=== PATIENT | female | born 1950 | race Caucasian/White ===

== ENCOUNTER 2023-06-26 13:44 | Outpatient (CLI) | payer MEDICARE, BC | END 2023-06-26 13:45 | disposition home or self-care (01) | LOC: CSHWCC 13:44 | PROVIDERS: ATTEND Nurse Practitioner Family | DX: S81.801D Unspecified open wound, right lower leg, subsequent encounter (principal); R60.0 Localized edema | CPT/HCPCS: 29581; 97139; 97605; G0463; 99203 ==

== ENCOUNTER 2023-06-28 09:25 | Outpatient (CLI) | payer MEDICARE, BC | END 2023-06-28 09:26 | disposition home or self-care (01) | LOC: CSHWCC 09:25 | PROVIDERS: ATTEND Nurse Practitioner Family | DX: S81.801D Unspecified open wound, right lower leg, subsequent encounter (principal); R60.0 Localized edema | CPT/HCPCS: 97597; 97605 ==

== ENCOUNTER 2023-07-01 14:57 | Outpatient (CLI) | payer MEDICARE, BC | END 2023-07-01 14:58 | disposition home or self-care (01) | LOC: CSHWCC 14:57 | PROVIDERS: ATTEND Nurse Practitioner Family | DX: S81.801D Unspecified open wound, right lower leg, subsequent encounter (principal); R60.0 Localized edema | CPT/HCPCS: 29581; 97605 ==

== ENCOUNTER 2023-07-04 13:32 | Outpatient (CLI) | payer MEDICARE, BC | END 2023-07-04 13:33 | disposition home or self-care (01) | LOC: CSHWCC 13:32 | PROVIDERS: ATTEND Nurse Practitioner Family | DX: S81.801D Unspecified open wound, right lower leg, subsequent encounter (principal); R60.0 Localized edema | CPT/HCPCS: 87070; 87077; 87186; 87205; 96372; 97139; G0463; 99213 ==

== ENCOUNTER 2023-07-05 09:38 | Outpatient (CLI) | payer MEDICARE, BC | END 2023-07-05 09:39 | disposition home or self-care (01) | LOC: CSHWCC 09:38 | PROVIDERS: ATTEND Nurse Practitioner Family | DX: S81.801D Unspecified open wound, right lower leg, subsequent encounter (principal); B96.89 Other specified bacterial agents as the cause of diseases classified elsewhere | CPT/HCPCS: 96372; 97139; G0463; 99212 ==

== ENCOUNTER 2023-07-09 15:20 | Outpatient (CLI) | payer MEDICARE, BC | END 2023-07-09 15:21 | disposition home or self-care (01) | LOC: CSHWCC 15:20 | PROVIDERS: ATTEND Nurse Practitioner Family | DX: S81.801D Unspecified open wound, right lower leg, subsequent encounter (principal) | CPT/HCPCS: 99214; G0463 ==

== ENCOUNTER 2023-07-11 14:14 | Outpatient (CLI) | payer MEDICARE, BC | END 2023-07-11 14:15 | disposition home or self-care (01) | LOC: CSHWCC 14:14 | PROVIDERS: ATTEND Nurse Practitioner Family | DX: R60.0 Localized edema (principal); S81.801D Unspecified open wound, right lower leg, subsequent encounter | CPT/HCPCS: 97602 ==